=== PATIENT | female | born 1970 | race Caucasian/White ===

== ENCOUNTER 2017-12-23 08:38 | Day surgery (SDC) | payer OTHER ==
[~2017-12-23] VITALS: Ht 167.6 cm; Wt 99.1 kg
[2017-12-23] MEDS ORDERED: METOPROLOL TARTRATE 50 MG TABLET PO PRN (09:00)
[2017-12-23] MEDS ORDERED: 0.9% SODIUM CHLORIDE 10 ML SYRINGE IVP PRN (09:00)
[2017-12-23] MEDS ORDERED: METOPROLOL TARTRATE 50 MG TABLET ONE (09:18)
[2017-12-23] MEDS ORDERED: AMIT25TA9 PO (09:33)
[2017-12-23] MEDS ORDERED: LATA2.5D2 OU (09:33)
[2017-12-23] MEDS ORDERED: VITAD1000 PO (09:33)
[2017-12-23] MEDS ORDERED: MECL-111 PO (09:33)
[2017-12-23] MEDS ORDERED: TIMO5DRO43 OU (09:33)
[2017-12-23] MEDS ORDERED: MET750 PO (09:33)
[2017-12-23] MEDS ORDERED: ATOR20TA86 PO (09:33)
[2017-12-23] MEDS ORDERED: ASPI-1182 PO (09:33)
[2017-12-23 09:35] LABS: ANION GAP 6 mmol/L (8-16); CALCIUM, TOTAL 8.6 mg/dL (8.8-10.5); CARBON DIOXIDE 30 mmol/L (22-29); CHLORIDE 100 mmol/L (98-107); GLOMERULAR FILTR. RATE CALC > 60 mL/min (>60); GLUCOSE,RANDOM 102 mg/dL (70-110); POTASSIUM 3.7 mmol/L (3.5-5.1); SODIUM SERUM 136 mmol/L (136-145); UREA NITROGEN, BLOOD 12 mg/dL (7-18)
[2017-12-23] MEDS ORDERED: METOPROLOL TARTRATE 5 MG/5 ML VIAL IVP ONE ×3 (09:45→10:45)
[2017-12-23] MEDS ORDERED: METOPROLOL TARTRATE 5 MG/5 ML VIAL ONE ×4 (09:52→10:49)
[2017-12-23] MEDS ORDERED: SODIUM CHLORIDE 0.9% 0 ML ONE (10:25)
[2017-12-23] MEDS ORDERED: IOVERSOL 350 MG/ML 100 ML VIAL ONE (10:25)
[2017-12-23] MEDS ORDERED: MethylPREDNISolone SOD SUCC 125 MG/2 ML VIAL ONE (10:33)
[2017-12-23] MEDS ORDERED: NITROGLYCERIN 400 MCG/SUBLINGUAL SPRAY 4.9 GM BOTTLE SL ONE (10:34)
== END 2017-12-23 11:35 | disposition home or self-care (01) ==
LOC: SURGERY 08:38 → EDSTATUS 11:00 → SURGERY 11:35
PROVIDERS: ATTEND Internal Medicine Cardiovascular Disease
DX: I20.8 Other forms of angina pectoris (principal); Z53.8 Procedure and treatment not carried out for other reasons; Z90.49 Acquired absence of other specified parts of digestive tract; Z90.710 Acquired absence of both cervix and uterus; Z79.82 Long term (current) use of aspirin; Z79.899 Other long term (current) drug therapy
CPT/HCPCS: 36415; 80048; 93005; J2930; J3490; J7050

== ENCOUNTER 2018-01-27 08:02 | Day surgery (SDC) | payer OTHER ==
[~2018-01-27] VITALS: Ht 167.6 cm; Wt 98.6 kg
[~2018-01-27 08:02] MED LIST: AMIT25TA9 PO; ASPI-1182 PO; ATOR20TA86 PO; LATA2.5D2 OU; MECL-111 PO; MET750 PO; NAPR-58 PO; PANT40TA25 PO; TIMO5DRO43 OU; VITAD1000 PO
[2018-01-27] MEDS ORDERED: 0.9% SODIUM CHLORIDE 10 ML SYRINGE IVP PRN (08:30)
[2018-01-27] MEDS ORDERED: METOPROLOL TARTRATE 50 MG TABLET PO PRN (08:30)
[2018-01-27] MEDS ORDERED: METOPROLOL TARTRATE 50 MG TABLET ONE (08:33)
[2018-01-27 08:53] LABS: ANION GAP 7 mmol/L (8-16); CALCIUM, TOTAL 8.9 mg/dL (8.8-10.5); CARBON DIOXIDE 30 mmol/L (22-29); CHLORIDE 102 mmol/L (98-107); GLOMERULAR FILTR. RATE CALC > 60 mL/min (>60); GLUCOSE,RANDOM 100 mg/dL (70-110); POTASSIUM 3.9 mmol/L (3.5-5.1); SODIUM SERUM 139 mmol/L (136-145); UREA NITROGEN, BLOOD 12 mg/dL (7-18)
[2018-01-27] MEDS ORDERED: METOPROLOL TARTRATE 5 MG/5 ML VIAL ONE ×3 (09:12→09:55)
[2018-01-27] MEDS ORDERED: METOPROLOL TARTRATE 5 MG/5 ML VIAL IVP ONE ×3 (09:15→09:45)
[2018-01-27] MEDS ORDERED: SODIUM CHLORIDE 0.9% 100 ML ONE (10:44)
[2018-01-27] MEDS ORDERED: IOVERSOL 350 MG/ML 150 ML VIAL ONE (10:44)
[2018-01-27] MEDS ORDERED: NITROGLYCERIN 400 MCG/SUBLINGUAL SPRAY 4.9 GM BOTTLE SL ONE ×2 (10:53→11:00)
== END 2018-01-27 11:35 | disposition home or self-care (01) ==
LOC: SURGERY 08:02 → EDSTATUS 10:00 → SURGERY 11:35
PROVIDERS: ATTEND Internal Medicine Cardiovascular Disease
DX: I20.8 Other forms of angina pectoris (principal); F41.8 Other specified anxiety disorders; Z79.82 Long term (current) use of aspirin; Z90.710 Acquired absence of both cervix and uterus; Z90.49 Acquired absence of other specified parts of digestive tract; Z79.01 Long term (current) use of anticoagulants; Z79.891 Long term (current) use of opiate analgesic; Z79.899 Other long term (current) drug therapy; Z82.49 Family history of ischemic heart disease and other diseases of the circulatory system
CPT/HCPCS: 36415; 75574; 80048; 93005; J3490; J7050; Q9967